=== PATIENT | male | born 1995 | race Caucasian/White ===

== ENCOUNTER 2019-09-17 19:08 | Emergency (ER) | payer OTHER ==
[~2019-09-17] VITALS: Ht 172.7 cm; Wt 76.2 kg
[2019-09-17 19:14] VITALS: Ht 172.7 cm; Wt 76.2 kg
[2019-09-17 20:06] LABS: BASOPHIL % 0.6 % (0-2); PLATELET COUNT 445 x10^3mcL (130-400)
[2019-09-17 20:11] LABS: CHLORIDE SERUM 102 mmol/L (98-107); GFR1 > 60 mL/min; GLUCOSE SERUM 88 mg/dL (74-106); POTASSIUM SERUM 3.8 mmol/L (3.5-5.1); SODIUM SERUM 140 mmol/L (136-145)
[2019-09-17 20:16] LABS: ALBUMIN 4.4 g/dL (3.4-5.0); ALKALINE PHOSPHATASE 62 U/L (46-116); ALT/SGPT 34 U/L (16-63); AST/SGOT 19 U/L (15-37); BILIRUBIN TOTAL 1.4 mg/dL (0.20-1.00)
[2019-09-17 20:21] LABS: TOTAL PROTEIN, SERUM 8.4 g/dL (6.4-8.2)
[2019-09-17 21:40] VITALS: BP 124/78
== END 2019-09-17 21:40 | disposition home or self-care (01) ==
LOC: ED 19:08
PROVIDERS: Emergency Medicine
DX: R53.1 Weakness (principal); R07.89 Other chest pain; R42 Dizziness and giddiness
CPT/HCPCS: Q0092